=== PATIENT | female | born 1960 | race Caucasian/White ===

== ENCOUNTER 2017-08-04 08:53 | Emergency (ER) | payer OTHER ==
[2017-08-04] MEDS: ACETAMINOPHEN 500 MG TABLET PO (10:05)
[2017-08-04] MEDS: ALBUTEROL SULFATE 2.5 MG/3 ML NEBU. NEB (10:28)
[2017-08-04 10:36] LABS: INFLUENZA A PATIENT POSITIVE (NEGATIVE); INFLUENZA B PATIENT NEGATIVE (NEGATIVE); OBC FLU VALID
[2017-08-04 10:43] LABS: BILIRUBIN,URINE NEGATIVE (NEG); CLARITY,URINE TURBID; COLOR,URINE AMBER; GLUCOSE,URINE NEGATIVE (NEG); NITRITE,URINE POSITIVE (NEG); PROTEIN,URINE 30 mg/dL (NEG-TRACE)
[2017-08-04 10:56] LABS: BACTERIA,URINE MANY /HPF (0-FEW); SQUAMOUS EPITHELIAL CELL,UR MOD /LPF
== END 2017-08-04 11:17 | disposition home or self-care (01) ==
LOC: ER 08:53
DX: N39.0 Urinary tract infection, site not specified (principal); J09.X2 Influenza due to identified novel influenza A virus with other respiratory manifestations; R60.0 Localized edema; H92.03 Otalgia, bilateral; E66.01 Morbid (severe) obesity due to excess calories; Z88.2 Allergy status to sulfonamides; Z86.718 Personal history of other venous thrombosis and embolism; Z68.36 Body mass index [BMI] 36.0-36.9, adult; Z90.49 Acquired absence of other specified parts of digestive tract; Z88.5 Allergy status to narcotic agent
CPT/HCPCS: 81001; 87086; 87804; 87804-59; 93971; 94640; 99285-25; J7613

== ENCOUNTER 2020-12-25 07:43 | Emergency (ER) | payer OTHER ==
[~2020-12-25] VITALS: Ht 170.2 cm; Wt 99.0 kg
[~2020-12-25 07:43] MED LIST: AMOX500C PO; BENZ100C PO; CIPR500T94 PO; HYDR-3164 PO; IBUP-1060 PO; OSEL75CA PO
[2020-12-25] MEDS ORDERED: ONDANSETRON PF 4 MG/2 ML VIAL. IVP ONE (08:00)
[2020-12-25] MEDS ORDERED: MORPHINE SULFATE 4 MG/ML VIAL. IV/SQ PRN (08:00)
[2020-12-25 08:07] LABS: BILIRUBIN,URINE NEGATIVE (NEG); CLARITY,URINE CLEAR; COLOR,URINE YELLOW; NITRITE,URINE NEGATIVE (NEG); PROTEIN,URINE NEGATIVE (NEG-TRACE)
--- NOTE | 2020-12-25 08:11 | ED.ADGEN ---
Past Medical History Past Medical History: No Pertinent History, DVT Past Surgical History: Appendectomy, Tonsillectomy, Other Additional Past Surgical Histo: ACL Smoking Status: Never Smoker Alcohol Use: None Drug Use: None General Adult EDM: Chief Complaint: ABDOMINAL PAIN HPI: HPI: Patient is a 60-year-old female who arrives ambulatory to the emergency department with multiple medical complaints. Patient reports over the past 3 days she has had upper to mid abdominal discomfort and nausea. Patient reports in addition of this she has felt fatigued as well. Patient further states that she has what feels like a lump in her throat and reminds her of when she had pro blems with her tonsils before they removed some 30 years ago. In addition to this discomfort with swallowing, the patient reports pain at the right side of her neck as she believes she has a swollen gland. Patient also reports to a rash of her back that has developed during this time as well. The patient is very anxious as to the constellation of symptoms that she is experiencing are worrisome to her and they have not resolved during this time. She denies any fevers. She further denies any vomiting or diarrhea. Additionally she denies any chest pain or genitourinary symptoms. Moreover she denies any shortness of air. She is awake, alert and nontoxic-appearing. Review of Systems: Review of Systems: Constitutional: Reports fatigue. Denies fever or chills. [] Eyes: Denies change in visual acuity. [] HENT: Denies nasal congestion or sore throat. [] Respiratory: Denies cough or shortness of breath. [] Cardiovascular: Denies chest pain or edema. [] GI: Reports nausea and abdominal pain. Denies vomiting, bloody stools or diarrhea. [] : Denies dysuria. [] Musculoskeletal: Denies back pain or joint pain. [] Integument: Reports rash. [] Neurologic: Denies headache, focal weakness or sensory changes. [] Endocrine: Denies polyuria or polydipsia. [] Lymphatic: Reports painful swelling of neck at right side. [] Psychiatric: Denies depression or anxiety. [] Current Medications: Current Medications Medications (Trade) Dose Ordered Sig/Teresa Start Time Stop Time Status Last Admin Dose Admin Ceftriaxone Sodium (Rocephin) 1 gm 1X ONCE 12/25/20 09:00 12/25/20 09:01 DC 12/25/20 09:06 1 GM Iohexol (Omnipaque 300 Mg/ml) 60 ml 1X ONCE 12/25/20 09:00 12/25/20 09:01 DC 12/25/20 09:03 60 ML Morphine Sulfate (Morphine Sulfate) 4 mg PRN Q15MIN PRN 12/25/20 08:00 12/26/20 07:59 12/25/20 08:17 4 MG Ondansetron HCl (Zofran) 4 mg 1X ONCE 12/25/20 08:00 12/25/20 08:09 DC 12/25/20 08:16 4 MG Allergies: Allergies: Allergies Coded Allergies Type Severity Reaction Last Updated Verified Sulfa (Sulfonamide Antibiotics) Allergy Intermediate RASH 08/18/16 Yes codeine Adverse Reaction Severe HALLUCINATIONS 08/18/16 Yes Physical Exam: PE: Constitutional: Uncomfortable appearing. Well developed, well nourished, no acute distress, non-toxic appearance. [] HENT: Normocephalic, atraumatic, bilateral external ears normal, oropharynx moist, no oral exudates, nose normal. [] Eyes: PERRLA, EOMI, conjunctiva normal, no discharge. [] Neck: Tenderness palpation of the right side without lymphadenopathy. Normal range of motion, supple, no stridor. [] Cardiovascular:Heart rate regular rhythm, no murmur [] Lungs & Thorax: Bilateral breath sounds clear to auscultation [] Abdomen: Minimal tenderness in the mid abdomen. Bowel sounds normal, soft, no masses, no pulsatile masses. [] Skin: Warm, dry, no erythema, no rash. [] Back: No tenderness, no CVA tenderness. [] Extremities: No tenderness, no cyanosis, no clubbing, ROM intact, no edema. [] Neurologic: Alert and oriented X 3, normal motor function, normal sensory function, no focal deficits noted. [] Psychologic: Affect normal, judgement normal, mood normal. [] Current Patient Data: Labs: Laboratory Tests Test 12/25/20 07:50 12/25/20 07:54 12/25/20 07:58 Urine Collection Type Void Urine Color Yellow Urine Clarity Clear Urine pH 7.0 (<5.0-8.0) Urine Specific [place] 1.015 (1.000-1.030) Urine Protein Negative mg/dL (NEG-TRACE) Urine Glucose (UA) 500 mg/dL (NEG) Urine Ketones (Stick) Negative mg/dL (NEG) Urine Blood Negative (NEG) Urine Nitrite Negative (NEG) Urine Bilirubin Negative (NEG) Urine Urobilinogen Dipstick 1.0 mg/dL (0.2 mg/dL) Urine Leukocyte Esterase Large (NEG) Urine RBC Occ /HPF (0-2) Urine WBC >40 /HPF (0-4) Urine Squamous Epithelial Cells Mod /LPF Urine Bacteria Moderate /HPF (0-FEW) POC Urine HCG, Qualitative Hcg negative (Negative) White Blood Count 9.4 x10^3/uL (4.0-11.0) Red Blood Count 4.62 x10^6/uL (3.50-5.40) Hemoglobin 14.5 g/dL (12.0-15.5) Hematocrit 42.0 % (36.0-47.0) Mean Corpuscular Volume 91 fL (79-100) Mean Corpuscular Hemoglobin 31 pg (25-35) Mean Corpuscular Hemoglobin Concent 34 g/dL (31-37) Red Cell Distribution Width 13.4 % (11.5-14.5) Platelet Count 298 x10^3/uL (140-400) Neutrophils (%) (Auto) 60 % (31-73) Lymphocytes (%) (Auto) 28 % (24-48) Monocytes (%) (Auto) 9 % (0-9) Eosinophils (%) (Auto) 3 % (0-3) Basophils (%) (Auto) 1 % (0-3) Neutrophils # (Auto) 5.6 x10^3/uL (1.8-7.7) Lymphocytes # (Auto) 2.6 x10^3/uL (1.0-4.8) Monocytes # (Auto) 0.8 x10^3/uL (0.0-1.1) Eosinophils # (Auto) 0.3 x10^3/uL (0.0-0.7) Basophils # (Auto) 0.1 x10^3/uL (0.0-0.2) Sodium Level 141 mmol/L (136-145) Potassium Level 4.2 mmol/L (3.5-5.1) Chloride Level 107 mmol/L (98-107) Carbon Dioxide Level 24 mmol/L (21-32) Anion Gap 10 (6-14) Blood Urea Nitrogen 11 mg/dL (7-20) Creatinine 1.2 mg/dL (0.6-1.0) H Estimated GFR (Cockcroft-Gault) 46.1 BUN/Creatinine Ratio 9 (6-20) Glucose Level 191 mg/dL (70-99) H Calcium Level 8.4 mg/dL (8.5-10.1) L Total Bilirubin 0.5 mg/dL (0.2-1.0) Direct Bilirubin 0.1 mg/dL (0.0-0.2) Aspartate Amino Transferase (AST) 28 U/L (15-37) Alanine Aminotransferase (ALT) 37 U/L (14-59) Alkaline Phosphatase 92 U/L (46-116) Troponin I Quantitative < 0.017 ng/mL (0.000-0.055) Total Protein 6.6 g/dL (6.4-8.2) Albumin 3.0 g/dL (3.4-5.0) L Albumin/Globulin Ratio 0.8 (1.0-1.7) L Lipase 62 U/L (73-393) L Laboratory Tests 12/25/20 07:58 Laboratory Tests 12/25/20 07:58 Vital Signs: Vital Signs Date Time Temp Pulse Resp B/P (MAP) Pulse Ox O2 Delivery O2 Flow Rate FiO2 12/25/20 09:39 76 125/60 (81) 95 Room Air 12/25/20 08:17 18 12/25/20 07:56 99.3 99.3 EKG: EKG: EKG was obtained at 8:06 AM and revealed a normal sinus rhythm with a ventricular rate of 78 bpm. There is left axis deviation without acute ST/T wave changes. This is an otherwise normal-appearing EKG. [] Heart Score: C/O Chest Pain: No Risk Factors: Risk Factors: DM, Current or recent (<one month) smoker, HTN, HLP, family history of CAD, obesity. Risk Scores: Score 0 - 3: 2.5% MACE over next 6 weeks - Discharge Home Score 4 - 6: 20.3% MACE over next 6 weeks - Admit for Clinical Observation Score 7 - 10: 72.7% MACE over next 6 weeks - Early Invasive Strategies Radiology/Procedures: Radiology/Procedures: [] Impression: [facility] [address] [place] [address] IMAGING REPORT Signed PATIENT: DAVID NEGRO ACCOUNT: [id number] : 1960 LOCATION: ER AGE: 60 SEX: F EXAM STATUS: REG ER ORD. PHYSICIAN: JULIENNE FAULKNER DO REASON: Nausea/pain PROCEDURE: PORTABLE CHEST 1V Exam performed: One view chest. Indication: Reason: Nausea/pain / Spl. Instructions: / History: Date of Service: 12/25/2020 8:07 AM Comparison: None available. Single AP upright portable view chest findings: The study somewhat limited due to positioning. The lung apices are not included on the image. Cardiomediastinal silhouette is within limits of normal. No acute infiltrates, effusion or pneumothorax is detected. The bony structures are normal. Impression: No acute cardiopulmonary process is detected. Electronically signed by: Jenn Dickson MD (12/25/2020 8:25 AM) [id number] DICTATED and SIGNED BY: JENN DICKSON MD DATE: 12/25/20 [id number] [id number] [place] [address] IMAGING REPORT Signed PATIENT: DAVID NEGRO ACCOUNT: [id number] : 1960 LOCATION: ER AGE: 60 SEX: F EXAM STATUS: REG ER ORD. PHYSICIAN: JULIENNE FAULKNER DO REASON: abdominal pain PROCEDURE: CT ABD PELV W/ IV CONTRST ONLY CT STUDY OF THE ABDOMEN AND PELVIS WITH CONTRAST Clinical indications: Abdominal pain. TECHNIQUE: After IV infusion of 60 cc of Omnipaque 300, helical CT scanning of the abdomen and pelvis was performed. GI contrast was not administered. This may decrease the sensitivity to detect GI tract pathology. PQRS COMPLIANCE STATEMENT One or more of the following individualized dose reduction techniques were utilized for this study: 1. Automated exposure control 2. Adjustment of the mA and/or kV according to patient size 3. Use of iterative reconstruction technique COMPARISON: None available. FINDINGS:The liver and spleen are unremarkable. There is fatty atrophy of the head and neck of the pancreas. No pancreatic mass or peripancreatic inflammation or free fluid or pseudocyst is seen. The gallbladder is normal. No extrahepatic biliary ductal dilatation is seen. No adrenal mass is evident. No hydronephrosis or hydroureter or renal mass is seen. No focal aneurysmal dilatat ion of the abdominal aorta is seen. No enlarged abdominal or pelvic lymphadenopathy is seen. No uterine mass is seen. No dominant ovarian cyst or mass is evident. No obstructive bowel pattern is evident. The patient has had an appendectomy. Terminal ileum is unremarkable. No free intraperitoneal air or free fluid or mesenteric edema is seen. Small umbilical hernia is seen containing only fat. No lung base consolidation is seen. No lytic process is seen. IMPRESSION: No acute abnormality is evident. Electronically signed by: Lauro Shepherd MD (12/25/2020 9:51 AM) [id number] DICTATED and SIGNED BY: LAURO SHEPHERD MD DATE: 12/25/20 [id number] 0 Course & Med Decision Making: Course & Med Decision Making Pertinent Labs and Imaging studies reviewed. (See chart for details) The patient remains awake, alert and in no acute distress. Patient does have findings consistent with a urinary tract infection. In addition to this the patient does have hyperglycemia I have asked that she follow-up with her primary care physician for further evaluation as to the development of diabetes. The patient understands and has agreed to do so. Should she develop any new pain or fevers have advised her to return. Patient understands and has agreed to do so. She is nontoxic-appearing and stable for discharge. Dragon Disclaimer: Dragdorian Disclaimer: This electronic medical record was generated, in whole or in part, using a voice recognition dictation system. Departure Departure Impression: Primary Impression: UTI (urinary tract infection) Additional Impression: Hyperglycemia Disposition: 01 HOME / SELF CARE / HOMELESS Condition: STABLE Referrals: NO PCP (PCP) Patient Instructions: Hyperglycemia, Urinary Tract Infection Scripts Dicyclomine Hcl (DICYCLOMINE HCL) 10 Mg Capsule 1 CAP PO PRN Q6HRS for abdominal cramping, #12 CAP 3 Refills Prov: JULIENNE FAULKNER DO 12/25/20 Cephalexin (CEPHALEXIN) 500 Mg Tablet 1 TAB PO QID, #20 TAB Prov: JULIENNE FAULKNER DO 12/25/20 Problem Qualifiers JULIENNE FAULKNER DO Dec 25, 2020 08:11
[2020-12-25 08:13] LABS: BASO # 0.1 x10^3/uL (0.0-0.2); BASO % 1 % (0-3); EOS # 0.3 x10^3/uL (0.0-0.7); EOS % 3 % (0-3); HEMOGLOBIN 14.5 g/dL (12.0-15.5); LYMPH # 2.6 x10^3/uL (1.0-4.8); LYMPH % 28 % (24-48); MEAN CORPUSCULAR HEMOGLOBIN 31 pg (25-35); MEAN CORPUSCULAR HGB CONC 34 g/dL (31-37); MEAN CORPUSCULAR VOLUME 91 fL (79-100); MONO # 0.8 x10^3/uL (0.0-1.1); MONO % 9 % (0-9); NEUT # 5.6 x10^3/uL (1.8-7.7); NEUT % 60 % (31-73); PLATELET COUNT 298 x10^3/uL (140-400); RED BLOOD COUNT 4.62 x10^6/uL (3.50-5.40); RED CELL DISTRIBUTION WIDTH 13.4 % (11.5-14.5); WHITE BLOOD COUNT 9.4 x10^3/uL (4.0-11.0)
[2020-12-25 08:19] LABS: BACTERIA,URINE MODERATE /HPF (0-FEW); RBC,URINE OCC /HPF (0-2); WBC,URINE >40 /HPF (0-4)
[2020-12-25 08:22] LABS: CALCIUM 8.4 mg/dL (8.5-10.1); CREATININE 1.2 mg/dL (0.6-1.0); GFR 46.1; POTASSIUM 4.2 mmol/L (3.5-5.1)
[2020-12-25 08:27] LABS: ALBUMIN/GLOBULIN RATIO 0.8 (1.0-1.7); DIRECT BILIRUBIN 0.1 mg/dL (0.0-0.2); TOTAL BILIRUBIN 0.5 mg/dL (0.2-1.0); TOTAL PROTEIN 6.6 g/dL (6.4-8.2)
--- NOTE | 2020-12-25 08:28 | RAD ---
Exam performed: One view chest. Indication: Reason: Nausea/pain / Spl. Instructions: / History: Date of Service: 12/25/2020 8:07 AM Comparison: None available. Single AP upright portable view chest findings: The study somewhat limited due to positioning. The lung apices are not included on the image. Cardiomediastinal silhouette is within limits of normal. No acute infiltrates, effusion or pneumotho rax is detected. The bony structures are normal. Impression: No acute cardiopulmonary process is detected. Electronically signed by: Jenn Dickson MD (12/25/2020 8:25 AM) [id number]
[2020-12-25] MEDS ORDERED: IOHEXOL 300 MG/ML 100ML VIAL. IV ONE (09:00)
[2020-12-25] MEDS ORDERED: cefTRIAXone IV Push 1 GM VIAL. IVP ONE (09:00)
[2020-12-25 09:39] VITALS: BP 125/60
--- NOTE | 2020-12-25 09:53 | RAD ---
CT STUDY OF THE ABDOMEN AND PELVIS WITH CONTRAST Clinical indications: Abdominal pain. TECHNIQUE: After IV infusion of 60 cc of Omnipaque 300, helical CT scanning of the abdomen and pelvis was performed. GI contrast was not administered. This may decrease the sensitivity to detect GI trac t pathology. PQRS COMPLIANCE STATEMENT One or more of the following individualized dose reduction techniques were utilized for this study: 1. Automated exposure control 2. Adjustment of the mA and/or kV according to patient size 3. Use of iterative reconstruction technique COMPARISON: None available. FINDINGS:The liver and spleen are unremarkable. There is fatty atrophy of the head and neck of the pa ncreas. No pancreatic mass or peripancreatic inflammation or free fluid or pseudocyst is seen. The ga llbladder is normal. No extrahepatic biliary ductal dilatation is seen. No adrenal mass is evident. N o hydronephrosis or hydroureter or renal mass is seen. No focal aneurysmal dilatation of the abdomina l aorta is seen. No enlarged abdominal or pelvic lymphadenopathy is seen. No uterine mass is seen. No dominant ovarian cyst or mass is evident. No obstructive bowel pattern is evident. The patient has h ad an appendectomy. Terminal ileum is unremarkable. No free intraperitoneal air or free fluid or mese nteric edema is seen. Small umbilical hernia is seen containing only fat. No lung base consolidation is seen. No lytic process is seen. IMPRESSION: No acute abnormality is evident. Electronically signed by: Lauro Shepherd MD (12/25/2020 9:51 AM) [id number]
[2020-12-25] MEDS ORDERED: DICY10CA3 PO (10:04)
[2020-12-25] MEDS ORDERED: CEPH500T PO (10:04)
--- NOTE | 2020-12-25 13:57 | EKG ---
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
== END 2020-12-25 10:22 | disposition home or self-care (01) ==
LOC: ER 07:43
DX: N39.0 Urinary tract infection, site not specified (principal); R73.9 Hyperglycemia, unspecified; Z90.89 Acquired absence of other organs; Z88.2 Allergy status to sulfonamides; Z88.5 Allergy status to narcotic agent
CPT/HCPCS: 36415; 71045; 74177; 80053; 81001; 81025; 82248; 83690; 84484; 85025; 87086; 93005; 96374; 96375; 99285; J0696; J2270; J2405; Q9967

== ENCOUNTER 2021-01-27 14:12 | Emergency (ER) | payer OTHER ==
[~2021-01-27] VITALS: Ht 170.2 cm; Wt 100.9 kg
[~2021-01-27 14:12] MED LIST changes: +CEPH500T PO; +DICY10CA3 PO
--- NOTE | 2021-01-27 15:28 | PHYS DOC ---
Past Medical History Past Medical History: No Pertinent History, Diabetes-Type II, DVT Past Surgical History: Appendectomy, Tonsillectomy, Other Additional Past Surgical Histo: ACL Smoking Status: Never Smoker Alcohol Use: None Drug Use: None General Adult EDM: Chief Complaint: MULTIPLE COMPLAINTS HPI: HPI: Patient is a 60 year old female with a history of diabetes type 2, who presents the ED today complaining of a productive cough, shortness of breath, diarrhea, body aches, symptoms of been going on for 2 weeks. Patient states she was tested for COVID-19 on January 15, 2021 and the test was negative. Patient denies any fever. Denies any chest pain. Reports that her daughter has similar symptoms. Review of Systems: Review of Systems: Constitutional: Reports body aches. Denies fever or chills. [] Eyes: Denies change in visual acuity. [] HENT: Denies nasal congestion or sore throat. [] Respiratory: Reports cough and shortness of breath. [] Cardiovascular: Denies chest pain or edema. [] GI: Reports diarrhea. Denies abdominal pain, nausea, vomiting, bloody stools : Denies dysuria. [] Musculoskeletal: Denies back pain or joint pain. [] Integument: Denies rash. [] Neurologic: Denies headache, focal weakness or sensory changes. [] Psychiatric: Denies depression or anxiety. [] Heart Score: C/O Chest Pain: N/A Risk Factors: Risk Factors: DM, Current or recent (<one month) smoker, HTN, HLP, family history of CAD, obesity. Risk Scores: Score 0 - 3: 2.5% MACE over next 6 weeks - Discharge Home Score 4 - 6: 20.3% MACE over next 6 weeks - Admit for Clinical Observation Score 7 - 10: 72.7% MACE over next 6 weeks - Early Invasive Strategies Allergies: Allergies: Allergies Coded Allergies Type Severity Reaction Last Updated Verified Sulfa (Sulfonamide Antibiotics) Allergy Intermediate RASH 08/18/16 Yes codeine Adverse Reaction Severe HALLUCINATIONS 08/18/16 Yes Physical Exam: PE: Constitutional: Well developed, well nourished, no acute distress, non-toxic fanta earance. [] HENT: Normocephalic, atraumatic, bilateral external ears normal, oropharynx moist, no oral exudates, nose normal. [] Eyes: PERRLA, EOMI, conjunctiva normal, no discharge. [] Neck: Normal range of motion, no tenderness, supple, no stridor. [] Cardiovascular:Heart rate regular rhythm, no murmur [] Lungs & Thorax: Patient is actively coughing in the ED. Coarse lung sounds Abdomen: Bowel sounds normal, soft, no tenderness, no masses, no pulsatile masses. [] Skin: Warm, dry, no erythema, no rash. [] Back: No tenderness, no CVA tenderness. [] Extremities: No tenderness, no cyanosis, no clubbing, ROM intact, no edema. [] Neurologic: Alert and oriented X 3, normal motor function, normal sensory function, no focal deficits noted. [] Psychologic: Affect normal, judgement normal, mood normal. [] EKG: EK interpreted by Dr. Wallace sinus rhythm heart rate 92 no STEMI [] Radiology/Procedures: Radiology/Procedures: []PROCEDURE: PORTABLE CHEST 1V PROCEDURE: XR CHEST 1V.01/27/2021 4:18 PM REASON FOR STUDY: Reason: cough / Spl. Instructions: / History: . COMPARISON: Radiograph of 12/25/2020. FINDINGS: Patchy infiltrate is suggested laterally at both lung bases and possibly the right upper lobe. No pleural fluid is seen. Heart size is normal. IMPRESSION: Mild bilateral infiltrates. Covid 19 infection is a consideration. Electronically signed by: Paloma Hawkins Jr., MD (01/27/2021 4:19 PM) [facility] DICTATED and SIGNED BY: PALOMA HAWKINS Jr, MD DATE: 01/27/21 [id number] 0 Course & Med Decision Making: Course & Med Decision Making Pertinent Labs and Imaging studies reviewed. (See chart for details) This is a 60-year-old female patient presenting today complaining of a cough, shortness of breath, diarrhea, body aches, symptoms for 2 weeks. Vitals on arrival to the ED temperature 102.8, heart rate 93, respirations 17 on room air, O2 sats 95% on room air, blood pressure 154/66. CBC with no acute findings, CMP with glucose of 197, history of hypertension Chest x-ray noted for mild bilateral infiltrates consistent with COVID-19 Positive for COVID-[address] Hyde who requested we give patient Regeneron infusion and get her going home Pharmacy reported to have a monoclonal treatment of covid which was given in the ED and patient was discharged to home Mario Disclaimer: Mario Disclaimer: This electronic medical record was generated, in whole or in part, using a voice recognition dictation system. Departure Departure Impression: Primary Impression: Bilateral pneumonia Qualified Codes: J18.9 - Pneumonia, unspecified organism Additional Impressions: Fever Qualified Codes: R50.9 - Fever, unspecified Lab test positive for detection of COVID-19 virus Disposition: HOME / SELF CARE / HOMELESS Condition: STABLE Referrals: NO PCP (PCP) follow up with your doctor in 1-2 weeks Patient Instructions: Fever, Adult, Pneumonia, Adult, [id number] Additional Instructions: You were evaluated in the emergency room and noted to have COVID-19. Please quarantine yourself for 10 days. Push fluids, maintain good and hygiene, take Tylenol or Motrin for pain or fever. Take the prescribed prednisone until co mpleted as well as Augmentin. Follow-up with your doctor in the course of this week or next week. Come back to the ED at any point symptoms worsen Scripts Albuterol Sulfate (PROAIR HFA INHALER) 8.5 Gm Hfa.aer.ad 2 PUFF IH PRN Q4-6HRS PRN for wheezing for 21 Days, #1 INHALER 0 Refills Prov: DINORA MIDDLETON APRN 01/27/21 Benzonatate (TESSALON PERLE) 100 Mg Capsule 1 CAP PO TID, #30 CAP Prov: DINORA MIDDLETON APRN 01/27/21 Promethazine/Dextromethorphan (Promethazine-Dm Syrup) 473 Ml Syrup 5 ML PO PRN Q6HRS PRN for cough for 6 Days, #120 ML 0 Refills Prov: DINORA MIDDLETON APRN 01/27/21 Prednisone (PREDNISONE) 50 Mg Tablet 1 TAB PO DAILY, #5 TAB Prov: DINORA MIDDLETON APRN 01/27/21 Amoxicillin/Potassium Clav (AUGMENTIN 875-125 TABLET) 1 Each Tablet 1 TAB PO BID for 10 Days, #20 TAB 0 Refills Prov: DINORA MIDDLETON APRN 01/27/21 DINORA MIDDLETON APRN Jan 27, 2021 15:28
[2021-01-27] MEDS ORDERED: guaiFENesin ORAL 200 MG/10 ML LIQUID. PO ONE (15:30)
[2021-01-27] MEDS ORDERED: DEXAMETHASONE SOD PHOS 20 MG/5 ML VIAL. IV ONE (15:30)
[2021-01-27] MEDS ORDERED: BENZONATATE 100 MG CAPSULE. PO ONE (15:30)
[2021-01-27] MEDS ORDERED: ACETAMINOPHEN 500 MG TABLET PO ONE (16:00)
--- NOTE | 2021-01-27 16:21 | RAD ---
PROCEDURE: XR CHEST 1V.01/27/2021 4:18 PM REASON FOR STUDY: Reason: cough / Spl. Instructions: / History: . COMPARISON: Radiograph of 12/25/2020. FINDINGS: Patchy infiltrate is suggested laterally at both lung bases and possibly the right upper lo be. No pleural fluid is seen. Heart size is normal. IMPRESSION: Mild bilateral infiltrates. Covid 19 infection is a consideration. Electronically signed by: Charles Hawkins Jr., MD (01/27/2021 4:19 PM) [facility]
[2021-01-27 16:57] LABS: BASO % 0 % (0-3); EOS % 0 % (0-3); HEMATOCRIT 45.2 % (36.0-47.0); HEMOGLOBIN 15.1 g/dL (12.0-15.5); LYMPH # 1.1 x10^3/uL (1.0-4.8); LYMPH % 27 % (24-48); MEAN CORPUSCULAR HEMOGLOBIN 30 pg (25-35); MEAN CORPUSCULAR HGB CONC 34 g/dL (31-37); MEAN CORPUSCULAR VOLUME 90 fL (79-100); MONO # 0.2 x10^3/uL (0.0-1.1); MONO % 6 % (0-9); NEUT # 2.7 x10^3/uL (1.8-7.7); NEUT % 67 % (31-73); PLATELET COUNT 136 x10^3/uL (140-400); RED BLOOD COUNT 5.01 x10^6/uL (3.50-5.40); RED CELL DISTRIBUTION WIDTH 13.5 % (11.5-14.5)
[2021-01-27 17:25] LABS: CALCIUM 8.2 mg/dL (8.5-10.1); GFR 56.9; POTASSIUM 3.9 mmol/L (3.5-5.1)
[2021-01-27 17:38] LABS: ALBUMIN 3.1 g/dL (3.4-5.0); ALBUMIN/GLOBULIN RATIO 0.9 (1.0-1.7); TOTAL BILIRUBIN 0.2 mg/dL (0.2-1.0); TOTAL PROTEIN 6.5 g/dL (6.4-8.2)
[2021-01-27] MEDS ORDERED: CASIRIVIMAB/IMDEVIMAB 1200/1200mg in IV NS TV=250 ML IV ONE (18:00)
[2021-01-27] MEDS ORDERED: IV NORMAL SALINE 1000ML BAG 1,000 ML IV ONE (18:15)
[2021-01-27] MEDS ORDERED: ONDANSETRON PF 4 MG/2 ML VIAL. ONE (18:40)
[2021-01-27] MEDS ORDERED: AMOX1TAB61 PO (18:50)
[2021-01-27] MEDS ORDERED: ALBU2.5V8 IH (18:50)
[2021-01-27] MEDS ORDERED: BENZ100C PO (18:50)
[2021-01-27] MEDS ORDERED: D-ME473S14 PO (18:50)
[2021-01-27] MEDS ORDERED: PRED50TA PO (18:50)
[2021-01-27] MEDS ORDERED: ONDANSETRON PF 4 MG/2 ML VIAL. IVP ONE (19:00)
[2021-01-27] MEDS ORDERED: METOCLOPRAMIDE HCL 10 MG/2 ML VIAL. IVP ONE (20:45)
[2021-01-27 20:58] VITALS: BP 121/63
--- NOTE | 2021-01-28 00:25 | EKG ---
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
== END 2021-01-27 21:04 | disposition home or self-care (01) ==
LOC: ER 14:12
DX: U07.1 COVID-19 (principal); J18.9 Pneumonia, unspecified organism; E11.9 Type 2 diabetes mellitus without complications; Z86.718 Personal history of other venous thrombosis and embolism; Z88.2 Allergy status to sulfonamides; Z88.5 Allergy status to narcotic agent
CPT/HCPCS: 36415; 71045; 80053; 83605; 83880; 84145; 84484; 85025; 87040; 87426; 93005; 96365; 96375; 99285; J1100; J2405; J2765; J7030; J7050; Q0243; U0003